=== PATIENT | male | born 1960 | race Caucasian/White ===

== ENCOUNTER 2019-06-28 20:45 | Emergency (ER) | payer MEDICARE ==
[2019-06-28] MEDS ORDERED: NORMAL SALINE 1000 ML 1,000 ML IV ONE (22:01)
[2019-06-28] MEDS ORDERED: ONDANSETRON 4 MG TAB.RAPDIS PO ONE (22:01)
--- NOTE | 2019-06-28 22:02 | ER Document Report ---
ED Medical Screen (RME) - General Chief Complaint: Vomiting Stated Complaint: VOMITING Time Seen by Provider: 06/28/19 21:58 Primary Care Provider: TARI WARE DO [Primary Care Provider] - Follow up as needed TRAVEL OUTSIDE OF THE [place] IN LAST 30 DAYS: No - HPI Notes: 06/28/19 22:01 59-year-old male to the emergency department with complaints of upper abdominal pain for the past week with vomiting that began this morning. He states he is vomited at least 12 times. Denies any fevers or chills. Denies any diarrhea. Denies any recent travel or recent antibiotic use. He has never had surgery on his abdomen before. He is never had gallstones. He denies any chest pain or shortness of breath. Performed a medical screening exam on the patient. Have placed initial orders to aid in patient's treatment plan. Will have mainside provider further evaluate and disposition patient. - Related Data Allergies/Adverse Reactions: bacampicillin HCl [From Spectrobid] Allergy (Verified 04/30/14 03:35) metoclopramide HCl [From Reglan] Allergy (Verified 04/30/14 03:35) Past Medical History - Past Medical History Cardiac Medical History: Reports: Hx Hypercholesterolemia, Hx Hypertension Pulmonary Medical History: Reports: Hx Asthma Musculoskeltal Medical History: Reports Hx Arthritis, Reports Hx Musculoskeletal Deformity, Reports Hx Musculoskeletal Trauma Psychiatric Medical History: Reports: Hx Anxiety, Hx Attention Deficit Hyperactivity Disorder, Hx Bipolar Disorder, Hx Depression Traumatic Medical History: Reports: Hx Fractures - rt ankle, Hx Traumatic Brain Injury Past Surgical History: Reports: Hx Orthopedic Surgery - shoulder knee ankle Physical Exam - Vital signs Vitals: Temp Pulse Resp BP Pulse Ox 98.2 F 106 H 16 155/82 H 97 06/28/19 21:19 06/28/19 21:19 06/28/19 21:19 06/28/19 21:19 06/28/19 21:19 Course - Vital Signs Vital signs: Temp Pulse Resp BP Pulse Ox 98.2 F 106 H 16 155/82 H 97 06/28/19 21:19 06/28/19 21:19 06/28/19 21:19 06/28/19 21:19 06/28/19 21:19 - Laboratory Result Diagrams: 06/28/19 22:15 06/28/19 22:15 Laboratory results interpreted by me: 06/28/19 06/28/19 22:15 22:15 WBC 14.2 H RBC 5.57 H RDW 14.2 H Lymph % (Auto) 10.5 L Absolute Neuts (auto) 11.7 H Seg Neutrophils % 82.4 H Urine Protein 30 H Urine Ketones TRACE H Doctor's Discharge - Discharge Referrals: TARI WARE DO [Primary Care Provider] - Follow up as needed
[2019-06-28 22:42] LABS: ABSOLUTE BASOPHILS # (AUTO) 0.1 10^3/uL (0.0-0.2); ABSOLUTE LYMPHOCYTES (AUTO) 1.5 10^3/uL (0.5-4.7); ABSOLUTE MONOCYTES (AUTO) 0.9 10^3/uL (0.1-1.4); ABSOLUTE NEUT (AUTO) 11.7 10^3/uL (1.7-8.2); BASOPHILS % (AUTO) 0.4 % (0-2); EOSINOPHILS % (AUTO) 0.2 % (0-6); HEMATOCRIT 46.3 % (37.9-51.0); HEMOGLOBIN 15.7 g/dL (13.5-17.0); LYMPHOCYTES % (AUTO) 10.5 % (13-45); MEAN CORPUSCULAR HEMOGLOBIN 28.1 pg (27.0-33.4); MEAN CORPUSCULAR HGB CONC 33.8 g/dL (32.0-36.0); MEAN CORPUSCULAR VOLUME 83 fl (80-97); MONOCYTES % (AUTO) 6.5 % (3-13); PLATELET COUNT 334 10^3/uL (150-450); RED BLOOD COUNT 5.57 10^6/uL (4.35-5.55); RED CELL DISTRIBUTION WIDTH 14.2 % (11.5-14.0); SEGMENTED NEUTROPHILS % (AUTO) 82.4 % (42-78); TOTAL CELLS COUNTED % (AUTO) 100 %; WHITE BLOOD COUNT 14.2 10^3/uL (4.0-10.5)
[2019-06-28 22:51] LABS: APPEARANCE,URINE SLIGHTLY-CLOUDY; BILIRUBIN,URINE NEGATIVE (NEGATIVE); GLUCOSE, URINE NEGATIVE (NEGATIVE); KETONES,URINE TRACE mg/dL (NEGATIVE); LEUKOCYTE ESTERASE,URINE NEGATIVE (NEGATIVE); NITRITE,URINE NEGATIVE (NEGATIVE); PROTEIN,URINE 30 mg/dL (NEGATIVE); URINE SPECIFIC GRAVITY 1.029; UROBILINOGEN,URINE NEGATIVE mg/dL (<2.0)
[2019-06-28 22:52] LABS: COLOR,URINE DARK YELLOW
[2019-06-28 22:58] LABS: ALBUMIN 4.6 g/dL (3.5-5.0); ALKALINE PHOSPHATASE 85 U/L (38-126); ANION GAP 14 (5-19); ASPARTATE AMINO TRANSFERASE 28 U/L (17-59); BILIRUBIN,DIRECT 0.3 mg/dL (0.0-0.4); BILIRUBIN,TOTAL 0.6 mg/dL (0.2-1.3); BLOOD UREA NITROGEN 14 mg/dL (7-20); CARBON DIOXIDE 27 mmol/L (22-30); CHLORIDE 104 mmol/L (98-107); GLUCOSE 114 mg/dL (75-110); POTASSIUM 4.8 mmol/L (3.6-5.0); TOTAL PROTEIN 8.6 g/dL (6.3-8.2)
--- NOTE | 2019-06-28 23:32 | RADIOLOGY REPORT (SQ) ---
EXAM DESCRIPTION: US ABDOMEN LIMITED COMPLETED DATE/TME: 06/28/2019 22:00 CLINICAL HISTORY: 59 years, Male, epigastric and RUQ abd pain COMPARISON: None. TECHNIQUE: Axial 2-D grayscale images of the abdomen were acquired. Doppler was utilized. LIMITATIONS: None. FINDINGS: Pancreas is obscured by overlying bowel gas artifact. Visualized portions of the abdominal aorta appear normal with measurements as follows: Mid: 1.7 cm Distal: 1.0 cm The liver is diffusely echogenic. It measures 16.6 cm in length. No obvious focal liver lesions are appreciated. Antegrade flow is documented within the main portal vein. Right kidney measures 11.3 x 5.7 x 6.5 cm in size. A simple cyst emanates from the lower pole measuring 4.1 x 3.7 x 3.9 cm in size. An additional simple cyst is noted about the interpolar region of the right kidney. However, there is an area of exophytic isoechogenicity emanating from the interpolar region of the right kidney on image 50. No hydronephrosis. Gallbladder wall thickness measures 2 to 3 mm. Common bile duct diameter measures 3 mm. No gallstones. Sonographic Romero sign was negative. No free fluid. IMPRESSION: No acute sonographic abnormality. Echogenic liver, suggestive of hepatic steatosis. Simple right renal cysts. Additional area of exophytic isoechogenicity emanating from the interpolar region of the right kidney could indicate focal lobulation or an isoechoic renal lesion. Recommend correlation with renal mass protocol CT or MR on a nonemergent basis. copyright 2010 [employer]- All Rights Reserved
[2019-06-29] MEDS ORDERED: FAMOTIDINE 20 MG TABLET PO ONE (01:04)
[2019-06-29] MEDS ORDERED: MORPHINE SULFATE 10 MG/ML INJ IV ONE (01:04)
[2019-06-29] MEDS ORDERED: PROMETHAZINE HCL 25 MG TABLET PO ONE (01:04)
[2019-06-29] MEDS ORDERED: SUCRALFATE 1 GM TABLET PO ONE (01:04)
--- NOTE | 2019-06-29 01:05 | ER Document Report ---
ED GI/ - General Chief Complaint: Nausea/Vomiting Stated Complaint: VOMITING Time Seen by Provider: 06/28/19 21:58 Primary Care Provider: TARI WARE DO [Primary Care Provider] - Follow up in 3-5 days Notes: Patient is an 59-year-old male that comes emergency department for chief complaint of epigastric pain (he points to the epigastric and left upper abdomen) and 12 episodes of vomiting today. Symptoms did start earlier today. Denies diarrhea, shortness of breath, fever, flank pain, lower abdominal pain. He denies alcohol, smoking, recreational drugs. Past medical history includes hypertension, hyperlipidemia, asthma, chronic back pain, anxiety. He does admit he takes anti-inflammatories on a daily basis and he also eats a lot of spicy food. He denies history of PUD, denies any abdominal surgeries, denies any cardiac history. TRAVEL OUTSIDE OF THE [place] IN LAST 30 DAYS: No - Related Data Allergies/Adverse Reactions: bacampicillin HCl [From Spectrobid] Allergy (Verified 04/30/14 03:35) metoclopramide HCl [From Reglan] Allergy (Verified 04/30/14 03:35) Past Medical History - General Information source: Patient - Social History Smoking Status: Unknown if Ever Smoked Frequency of alcohol use: Occasional Drug Abuse: None Lives with: Family Family History: Reviewed & Not Pertinent Patient has suicidal ideation: No Patient has homicidal ideation: No - Past Medical History Cardiac Medical History: Reports: Hx Hypercholesterolemia, Hx Hypertension Pulmonary Medical History: Reports: Hx Asthma Musculoskeletal Medical History: Reports Hx Arthritis, Reports Hx Musculoskeleta l Deformity, Reports Hx Musculoskeletal Trauma Psychiatric Medical History: Reports: Hx Anxiety, Hx Attention Deficit Hyperactivity Disorder, Hx Bipolar Disorder, Hx Depression Traumatic Medical History: Reports: Hx Fractures - rt ankle, Hx Traumatic Brain Injury Past Surgical History: Reports: Hx Orthopedic Surgery - shoulder knee ankle - Immunizations Immunizations up to date: Yes Hx Diphtheria, Pertussis, Tetanus Vaccination: Yes Review of Systems - Review of Systems Constitutional: No symptoms reported EENT: No symptoms reported Cardiovascular: No symptoms reported Respiratory: No symptoms reported Gastrointestinal: See HPI Genitourinary: No symptoms reported Male Genitourinary: No symptoms reported Musculoskeletal: No symptoms reported Skin: No symptoms reported Hematologic/Lymphatic: No symptoms reported Neurological/Psychological: No symptoms reported Physical Exam - Vital signs Vitals: Temp Pulse Resp BP Pulse Ox 98.2 F 106 H 16 155/82 H 97 06/28/19 21:19 06/28/19 21:19 06/28/19 21:19 06/28/19 21:19 06/28/19 21:19 - Notes Notes: GENERAL: Alert, interacts well. No acute distress. HEAD: Normocephalic, atraumatic. EYES: Pupils equal, round, and reactive to light. Extraocular movements intact. ENT: Oral mucosa moist, tongue midline. Oropharynx unremarkable. Airway patent. LUNGS: Clear to auscultation bilaterally, no wheezes, rales, or rhonchi. No respiratory distress. HEART: Borderline tachycardia, normal rhythm, no murmur ABDOMEN: There is left upper quadrant tenderness, minimal epigastric tenderness, right upper quadrant is benign. Lower abdomen completely unremarkable. Bowel sounds present. Obese but no overt distention noted, no rigidity or guarding. GENITOURINARY: Deferred EXTREMITIES: Moves all 4 extremities spontaneously. No edema, normal radial and dorsalis pedis pulses bilaterally. No cyanosis. BACK: no cervical, thoracic, lumbar midline tenderness. No saddle anesthesia, normal distal neurovascular exam. Moves all extremities in full range of motion. NEUROLOGICAL: Alert and oriented x3. Normal speech. Cranial nerves II through XII grossly intact. PSYCH: Normal affect, normal mood. SKIN: Warm, dry, normal turgor. No rashes or lesions noted. Course - Re-evaluation Re-evalutation: EKG unremarkable, troponin negative. No chest pain. I suspect this is gastrointestinal in nature. CBC shows a cytosis which is nonspecific given patient's vomiting. Chemistry unremarkable. Urinalysis shows dehydration. Given IV fluids and after this his tachycardia resolved. Gallbladder does not show gallstones, cholecystitis, obstruction. Fatty liver, kidney cysts, uncertain finding with kidney suggesting possible kidney lesion which will require outpatient imaging. I discussed this with patient at length and with his , they will follow-up with primary care for this closely. Based on patient's location of pain, work-up, reported history, I have a strong suspicion of inflammation of the upper gastro-intestinal tract. Patient was given pain medication, Carafate, famotidine, Phenergan. Patient tolerated this well, drink fluids, did not vomit. He states he does feel significantly imp roved. Discussed expectations, follow-up, return precautions. Patient and state understanding and agreement. - Vital Signs Vital signs: Temp Pulse Resp BP Pulse Ox 98 F 67 19 143/81 H 97 06/29/19 03:30 06/29/19 03:30 06/29/19 03:30 06/29/19 03:30 06/29/19 03:30 - Laboratory Result Diagrams: 06/28/19 22:15 06/28/19 22:15 Laboratory results interpreted by me: 06/28/19 06/28/19 06/28/19 22:15 22:15 22:15 WBC 14.2 H RBC 5.57 H RDW 14.2 H Lymph % (Auto) 10.5 L Absolute Neuts (auto) 11.7 H Seg Neutrophils % 82.4 H Glucose 114 H Total Protein 8.6 H Urine Protein 30 H Urine Ketones TRACE H - EKG Interpretation by Me Additional EKG results interpreted by me: EKG shows sinus rhythm at a rate of 87, QTC of 429, no T wave inversions or ST segment changes in consecutive leads. Discharge - Discharge Clinical Impression: Left upper quadrant pain Vomiting Qualifiers: Vomiting type: unspecified Vomiting Intractability: non-intractable Nausea presence: with nausea Qualified Code(s): R11.2 - Nausea with vomiting, unspecified Condition: Stable Disposition: HOME, SELF-CARE Additional Instructions: Your symptoms and examination indicate gastritis/esophagitis (inflammation of your upper gastrointestinal tract). Take Phenergan for nausea, take Carafate and Pepcid as prescribed to help treat this, you can take additional Rolaids, Tums, Maalox, etc. if needed. Avoid NSAIDs, alcohol, smoking, caffeine, spicy food. Start with clear fluids, progress to bland diet. Follow-up with primary care for additional evaluation and treatment including possible H. pylori testing. Return if you worsen including uncontrolled vomiting, vomiting blood, black stools, severe pain, fever of 100.4 or greater, or any other concerning or worsening symptoms. Your ultrasound shows an incidental finding of an abnormal appearing right kidney, please see the report and follow-up with your primary care closely for this to be investigated. The worse case scenario this could result in a cancer if you fail to do so. Prescriptions: Sucralfate [Carafate 1 gm Tablet] 1 gm PO QID #20 tablet Famotidine [Pepcid 20 mg Tablet] 20 mg PO BID #20 tablet Promethazine HCl [Phenergan 25 mg Tablet] 25 mg PO Q6H PRN #20 tablet PRN Reason: Referrals: TARI WARE DO [Primary Care Provider] - Follow up in 3-5 days
[2019-06-29] MEDS ORDERED: OXYCODONE HCL IR 5 MG TABLET PO ONE (03:17)
[2019-06-29] MEDS ORDERED: ONDANSETRON ODT 4 MG TAB (6 TAB/ER DISP) PO PRN (03:17)
[2019-06-29 03:30] VITALS: BP 143/81
--- NOTE | 2019-06-30 22:10 | EKG REPORT ---
SEVERITY:- NORMAL ECG - SINUS RHYTHM : Confirmed by: Terrell Webb 30-Jun-2019 22:08:40
== END 2019-06-29 03:30 | disposition home or self-care (01) ==
LOC: ER 20:45
DX: R10.12 Left upper quadrant pain (principal); R10.13 Epigastric pain; R10.812 Left upper quadrant abdominal tenderness; R10.816 Epigastric abdominal tenderness; R11.2 Nausea with vomiting, unspecified; K76.0 Fatty (change of) liver, not elsewhere classified; Q61.02 Congenital multiple renal cysts; I10 Essential (primary) hypertension; J45.909 Unspecified asthma, uncomplicated; Z79.899 Other long term (current) drug therapy; Z88.0 Allergy status to penicillin; Z88.8 Allergy status to other drugs, medicaments and biological substances
CPT/HCPCS: 93005; 99284; 96361; 96374; 36415; 83690; 85025; 80053; 81001; 84484; 76705; 93010; A9270 ×6; J2270; J7030; S0119

== ENCOUNTER → 2019-07-10 | Outpatient (CLI) | payer MEDICARE ==
--- NOTE | 2019-07-10 16:57 | RADIOLOGY REPORT (SQ) ---
EXAM DESCRIPTION: MRI ABDOMEN COMBO COMPLETED DATE/TIME: 07/10/2019 9:41 am REASON FOR STUDY: RENAL MASS (N28.89) COMPARISON: 06/28/2019 TECHNIQUE: Multiplanar multisequence imaging performed without and with contrast including sagittal, axial and coronal T2, axial T1, axial gradient fat sat T1, axial, sagittal and coronal fat sat T1 po st contrast. CONTRAST TYPE AND DOSE: 20 mL Dotarem. RENAL FUNCTION: GFR > 60. LIMITATIONS: None. FINDINGS: LIVER: Normal size. No masses. No dilated ducts. CBD normal. SPLEEN: Normal size. No focal lesions. PANCREAS: No masses. No adjacent inflammation or peripancreatic fluid collections. Pancreatic duct no t dilated. GALLBLADDER: Decompressed gallbladder. No stones identified. No pericholecystic inflammatory change . ADRENAL GLANDS: No significant masses or asymmetry. RIGHT KIDNEY AND URETER: Multiple renal cysts. There are to abutting cysts within the upper pole, la rgest measuring 4.3 cm. There is a single septation between the cysts. No abnormal enhancement or m ural nodularity. The previously described isoechoic lesion in the interpolar region measuring approx imately 1.0 cm demonstrates intrinsic T1 signal and no evidence of postcontrast enhancement most comp atible with hemorrhagic/proteinaceous cyst (series 10, image 54 and series 101, image 81). No additi onal discrete renal lesion No hydronephrosis. LEFT KIDNEY AND URETER: There are scattered small cysts, largest measuring 13 mm. No hydronephrosis. AORTA AND VESSELS: No aneurysm. No dissection. Renal arteries, SMA, celiac without stenosis. RETROPERITONEUM: No retroperitoneal adenopathy, hemorrhage or masses. BOWEL: No visualized masses. No inflammation. No significant dilatation. ABDOMINAL WALL AND PERITONEUM: No hernias. No free fluid. BONES: No acute or significant findings. OTHER: No other significant finding. IMPRESSION: 1. Previously described isoechoic renal lesion demonstrates signal characteristics most compatible with hemorrhagic/proteinaceous cyst. No discrete enhancing renal masses. 2. Additional bilateral simple renal cysts, largest measuring 4.3 cm on the right. TECHNICAL DOCUMENTATION: JOB ID: [id number] [employer]- All Rights Reserved Reading location - IP/workstation name: [email or web address]-
== END ==
LOC: RAD 08:03
PROVIDERS: ATTEND Family Medicine
DX: N28.89 Other specified disorders of kidney and ureter (principal)
CPT/HCPCS: 74183

== ENCOUNTER 2019-07-18 08:58 | Day surgery (SDC) | payer MEDICARE ==
[~2019-07-18 08:58] MED LIST: PROPOFOL INJ 200 MG/20 ML VIAL IV ONE
[2019-07-18 11:30] VITALS: BP 119/60
--- NOTE | 2019-07-18 11:46 | Operative Report ---
Operative Report DATE OF SURGERY: 07/18/19 Operative Report: The risks, benefits and alternatives of the procedure including the risk of bleeding, perforation requiring surgery have been explained to the patient in detail and informed consent has been obtained. Patient is taken back to the endoscopy suite and placed in a left, lateral decubital position. Timeout was called. Propofol medication is administered. Rectal examination is done which did not reveal any masses, tears or fissures. An Olympus videoscope was introduced into the patient's rectum. Scope was then carefully advanced all the way to the cecum. Cecum was identified by the usual anatomical landmarks including the ileocecal valve as well as the appendiceal office. Photodocumentation is obtained. Scope was then sequentially pulled back via the segments of the colon including the ascending colon, hepatic flexure, transverse colon, splenic flexure, descending colon finding to the rectosigmoid portions of the colon. Retroflexion maneuver is performed. The risks benefits and alternatives of the procedure explained to the patient in detail and informed consent is obtained.A GIF Olympus video scope was inserted into the patient's mouth and hypopharynx, the esophagus is identified intubated and insufflated, the scope was then advanced through the esophagus stomach and duodenum ,retroflexion maneuver is done ,the esophagus stomach and first and second portions of the duodenum examined PREOPERATIVE DIAGNOSIS: Change of bowel habits. Epigastric pain POSTOPERATIVE DIAGNOSIS: colon Inflammation right side of the colon status post biopsy. Internal hemorrhoids. Gastritis status post biopsy without Helicobacter pylori OPERATION: Colonoscopy with biopsy. EGD with biopsy SURGEON: MANDI SANDRA ANESTHESIA: LMAC TISSUE REMOVED OR ALTERED: As noted above. COMPLICATIONS: None. ESTIMATED BLOOD LOSS: None. INTRAOPERATIVE FINDINGS: As noted above. PROCEDURE: Patient tolerated the procedure well. No immediate postprocedure complications are noted. Patient is discharged in good condition. Discharge date 07/18/2019. Discharge diet: Regular. Discharge activity: Regular. 2 to 3-week follow-up to discuss findings. Patient is instructed to call the office or proceed to the emergency room should there be any further questions. Wait on the pathology.
== END 2019-07-18 10:55 | disposition home or self-care (01) ==
LOC: END 08:58
PROVIDERS: ATTEND Internal Medicine Gastroenterology
DX: K52.9 Noninfective gastroenteritis and colitis, unspecified (principal); K64.8 Other hemorrhoids; K29.50 Unspecified chronic gastritis without bleeding; I10 Essential (primary) hypertension; J45.909 Unspecified asthma, uncomplicated; E66.9 Obesity, unspecified; Z68.30 Body mass index [BMI] 30.0-30.9, adult; Z79.51 Long term (current) use of inhaled steroids; Z79.899 Other long term (current) drug therapy; Z88.8 Allergy status to other drugs, medicaments and biological substances
CPT/HCPCS: 43239; 45380; 88305 ×2; 00813; J2704; 813